=== PATIENT | female | born 1960 | race Asian ===

== ENCOUNTER 2018-09-29 23:12 | Inpatient (IN) | payer OTHER ==
[2018-09-30] MEDS ORDERED: HYDROCODONE/APAP (5/325) TAB PO (00:30)
[2018-09-30 05:49] LABS: ADD MAN DIFF? NO
[2018-09-30 05:56] LABS: WHITE BLOOD COUNT 5.5 10^3/ul (4.8-10.8)
[2018-09-30 05:56] LABS: BASOPHIL # 0.1 10^3/ul (0.0-0.1); BASOPHILS % 1.5 % (0.0-2.0); EOSINOPHILS # 0.2 10^3/ul (0.0-0.5); EOSINOPHILS % 2.9 % (0.0-7.0); HEMATOCRIT 32.6 % (37.0-47.0); HEMOGLOBIN 10.8 g/dl (12.0-16.0); LYMPHOCYTES # 1.6 10^3/ul (0.8-2.9); LYMPHOCYTES % 29.5 % (15.0-51.0); MEAN CORPUSCULAR HEMOGLOBIN 30.6 pg (29.0-33.0); MEAN CORPUSCULAR HGB CONC 33.1 g/dl (32.0-37.0); MEAN CORPUSCULAR VOLUME 92.4 fl (82.0-101.0); MEAN PLATELET VOLUME 10.1 fl (7.4-10.4); MONOCYTE # 0.5 10^3/ul (0.3-0.9); MONOCYTES % 9.8 % (0.0-11.0); NEUTROPHIL # 3.1 10^3/ul (1.6-7.5); NEUTROPHILS % 56.1 % (39.0-77.0); PLATELET COUNT 249 10^3/UL (140-415); RED BLOOD COUNT 3.53 10^6/ul (4.20-5.40); RED CELL DISTRIBUTION WIDTH 12.5 % (11.5-14.5)
[2018-09-30 06:07] LABS: ALANINE AMINOTRANSFERASE 16 IU/L (13-69); ALBUMIN 3.3 g/dl (3.3-4.9); ALBUMIN/GLOBULIN RATIO 1.13; ALKALINE PHOSPHATASE 70 IU/L (42-121); ANION GAP 4 (5-13); ASPARTATE AMINO TRANSFERASE 19 IU/L (15-46); BILIRUBIN,INDIRECT 0.2 mg/dl (0-1.1); BILIRUBIN,TOTAL 0.2 mg/dl (0.2-1.3); BLOOD UREA NITROGEN 24 mg/dl (7-20); CALCIUM 8.9 mg/dl (8.4-10.2); CARBON DIOXIDE 31 mmol/L (21-31); CHLORIDE 111 mmol/L (97-110); CREATININE 0.66 mg/dl (0.44-1.00); Estimated GFR > 60 mL/min (>60); GLUCOSE 115 mg/dl (70-220); MAGNESIUM 2.1 mg/dl (1.7-2.5); PHOSPHORUS 3.6 mg/dl (2.5-4.9); POTASSIUM 3.2 mmol/L (3.5-5.1); SODIUM 146 mmol/L (135-144); TOTAL PROTEIN 6.2 g/dl (6.1-8.1)
[2018-09-30] MEDS: HEPARIN 5,000 UNIT/1 ML VIAL SC ×2 (10:43→20:39)
[2018-09-30] MEDS: HYDROCODONE/APAP (5/325) TAB PO (13:39)
[2018-09-30] MEDS: POTASSIUM CHLORIDE (SR) 20 MEQ TAB PO (14:39)
[2018-10-01] MEDS: HYDROCODONE/APAP (5/325) TAB PO (01:32)
[2018-10-01 05:19] LABS: ADD MAN DIFF? NO
[2018-10-01 05:33] LABS: WHITE BLOOD COUNT 6.5 10^3/ul (4.8-10.8)
[2018-10-01 05:33] LABS: BASOPHIL # 0.1 10^3/ul (0.0-0.1); BASOPHILS % 1.1 % (0.0-2.0); EOSINOPHILS # 0.2 10^3/ul (0.0-0.5); EOSINOPHILS % 3.4 % (0.0-7.0); HEMATOCRIT 32.7 % (37.0-47.0); HEMOGLOBIN 10.6 g/dl (12.0-16.0); LYMPHOCYTES % 30.2 % (15.0-51.0); MEAN CORPUSCULAR HEMOGLOBIN 30.4 pg (29.0-33.0); MEAN CORPUSCULAR HGB CONC 32.4 g/dl (32.0-37.0); MEAN CORPUSCULAR VOLUME 93.7 fl (82.0-101.0); MEAN PLATELET VOLUME 9.9 fl (7.4-10.4); MONOCYTE # 0.4 10^3/ul (0.3-0.9); MONOCYTES % 6.2 % (0.0-11.0); NEUTROPHIL # 3.8 10^3/ul (1.6-7.5); NEUTROPHILS % 58.6 % (39.0-77.0); PLATELET COUNT 233 10^3/UL (140-415); RED BLOOD COUNT 3.49 10^6/ul (4.20-5.40); RED CELL DISTRIBUTION WIDTH 12.6 % (11.5-14.5)
[2018-10-01 05:57] LABS: ANION GAP 4 (5-13); BLOOD UREA NITROGEN 18 mg/dl (7-20); CALCIUM 9.1 mg/dl (8.4-10.2); CARBON DIOXIDE 31 mmol/L (21-31); CHLORIDE 110 mmol/L (97-110); CREATININE 0.53 mg/dl (0.44-1.00); Estimated GFR > 60 mL/min (>60); GLUCOSE 103 mg/dl (70-220); MAGNESIUM 2.2 mg/dl (1.7-2.5); PHOSPHORUS 3.8 mg/dl (2.5-4.9); POTASSIUM 4.3 mmol/L (3.5-5.1); SODIUM 145 mmol/L (135-144)
[2018-10-01] MEDS: NACL 0.9% 3 ML SYG IV (21:27)
[2018-10-02] MEDS: DEXTROSE 5%-0.45% NACL 1,000 ML IV ×3 (07:00→21:58)
[2018-10-02] MEDS ORDERED: FENTAnyl 50 MCG/ML VIAL ×2 (17:01→18:10)
[2018-10-02] MEDS ORDERED: MIDAZOLAM 1 MG/ML 2 ML INJ (17:01)
[2018-10-02] MEDS: POLYMYXIN/BACITRACIN 1L IRRIG (17:53)
[2018-10-02] MEDS ORDERED: VANCOMYCIN 1 GM INJ (18:45)
[2018-10-02] MEDS ORDERED: ONDANSETRON 4 MG INJ (19:19)
[2018-10-02] MEDS ORDERED: ETOMIDATE 20 MG INJ (19:19)
[2018-10-02] MEDS ORDERED: CEFAZOLIN 1 GM INJ (19:19)
[2018-10-02] MEDS ORDERED: LIDOCAINE 2% (SDV) 5 ML INJ (19:19)
[2018-10-02] MEDS ORDERED: morphine SULFATE/PF (10 MG/10 ML) INJ (19:20)
[2018-10-02] MEDS ORDERED: MEPERIDINE 25 MG INJ IV (20:00)
[2018-10-02] MEDS ORDERED: HYDROmorphONE 1 MG/5 ML IV SYRINGE IV ×2 (20:00)
[2018-10-02] MEDS ORDERED: FENTAnyl 50 MCG/ML VIAL IV (20:00)
[2018-10-02] MEDS ORDERED: DIPHENHYDRAMINE 50 MG INJ IV (20:00)
[2018-10-02] MEDS ORDERED: METOCLOPRAMIDE 10 MG INJ IV (20:00)
[2018-10-02] MEDS ORDERED: ONDANSETRON 4 MG INJ IV (20:00)
[2018-10-02] MEDS: ALBUMIN HUMAN 5% 250 ML IV (20:18)
[2018-10-02] MEDS ORDERED: EPHEDrine SULFATE 50 MG/5 ML SYG IV (20:30)
[2018-10-02] MEDS: LACTATED RINGER'S 500 ML IV (20:33)
[2018-10-02 20:44] LABS: ADD MAN DIFF? NO
[2018-10-02 20:45] LABS: BASOPHIL # 0.1 10^3/ul (0.0-0.1); BASOPHILS % 0.3 % (0.0-2.0); EOSINOPHILS # 0.1 10^3/ul (0.0-0.5); EOSINOPHILS % 0.5 % (0.0-7.0); HEMATOCRIT 27.9 % (37.0-47.0); HEMOGLOBIN 8.9 g/dl (12.0-16.0); LYMPHOCYTES # 2.9 10^3/ul (0.8-2.9); LYMPHOCYTES % 14.5 % (15.0-51.0); MEAN CORPUSCULAR HEMOGLOBIN 30.3 pg (29.0-33.0); MEAN CORPUSCULAR HGB CONC 31.9 g/dl (32.0-37.0); MEAN CORPUSCULAR VOLUME 94.9 fl (82.0-101.0); MEAN PLATELET VOLUME 9.7 fl (7.4-10.4); MONOCYTE # 0.8 10^3/ul (0.3-0.9); NEUTROPHILS % 80.1 % (39.0-77.0); PLATELET COUNT 188 10^3/UL (140-415); RED BLOOD COUNT 2.94 10^6/ul (4.20-5.40); RED CELL DISTRIBUTION WIDTH 12.5 % (11.5-14.5)
[2018-10-02 21:02] LABS: ANION GAP 9 (5-13); BLOOD UREA NITROGEN 13 mg/dl (7-20); CALCIUM 8.8 mg/dl (8.4-10.2); CARBON DIOXIDE 24 mmol/L (21-31); CHLORIDE 110 mmol/L (97-110); CREATININE 0.46 mg/dl (0.44-1.00); Estimated GFR > 60 mL/min (>60); GLUCOSE 150 mg/dl (70-220); POTASSIUM 4.1 mmol/L (3.5-5.1); SODIUM 143 mmol/L (135-144)
[2018-10-02] MEDS: CEFAZOLIN 1 GM/50 ML (PMX) 50 ML IVPB (21:55)
[2018-10-03] MEDS: CEFAZOLIN 1 GM/50 ML (PMX) 50 ML IVPB ×2 (01:09→13:04)
[2018-10-03] MEDS: DEXTROSE 5%-0.45% NACL 1,000 ML IV ×2 (08:15→18:37)
[2018-10-03] MEDS: ENOXAPARIN 40 MG/0.4 ML SYG SC (08:17)
[2018-10-03] MEDS: ACETAMINOPHEN 325 MG TAB PO (08:25)
[2018-10-03] MEDS: HYDROCODONE/APAP (5/325) TAB PO ×2 (13:04→18:39)
[2018-10-04] MEDS: DEXTROSE 5%-0.45% NACL 1,000 ML IV ×2 (03:28→19:00)
[2018-10-04 05:08] LABS: ADD MAN DIFF? NO
[2018-10-04 05:27] LABS: WHITE BLOOD COUNT 10.7 10^3/ul (4.8-10.8)
[2018-10-04 05:27] LABS: ABNORMAL IP MESSAGE 1; BASOPHILS % 0.3 % (0.0-2.0); EOSINOPHILS # 0.1 10^3/ul (0.0-0.5); EOSINOPHILS % 0.5 % (0.0-7.0); LYMPHOCYTES % 9.3 % (15.0-51.0); MEAN CORPUSCULAR HEMOGLOBIN 31.1 pg (29.0-33.0); MEAN CORPUSCULAR HGB CONC 32.9 g/dl (32.0-37.0); MEAN CORPUSCULAR VOLUME 94.4 fl (82.0-101.0); MEAN PLATELET VOLUME 10.2 fl (7.4-10.4); MONOCYTE # 0.7 10^3/ul (0.3-0.9); MONOCYTES % 6.6 % (0.0-11.0); NEUTROPHIL # 8.9 10^3/ul (1.6-7.5); NEUTROPHILS % 82.6 % (39.0-77.0); PLATELET COUNT 139 10^3/UL (140-415); RED CELL DISTRIBUTION WIDTH 12.9 % (11.5-14.5)
[2018-10-04 05:43] LABS: ANION GAP 5 (5-13); BLOOD UREA NITROGEN 6 mg/dl (7-20); CALCIUM 8.2 mg/dl (8.4-10.2); CARBON DIOXIDE 27 mmol/L (21-31); CHLORIDE 109 mmol/L (97-110); CREATININE 0.46 mg/dl (0.44-1.00); Estimated GFR > 60 mL/min (>60); GLUCOSE 172 mg/dl (70-220); MAGNESIUM 1.7 mg/dl (1.7-2.5); PHOSPHORUS 2.7 mg/dl (2.5-4.9); POTASSIUM 3.3 mmol/L (3.5-5.1); SODIUM 141 mmol/L (135-144)
[2018-10-04 05:55] LABS: POSITIVE DIFF @See below
[2018-10-04 05:57] LABS: HEMOGLOBIN 5.6 g/dl (12.0-16.0)
[2018-10-04 06:57] LABS: HEMATOCRIT 16.6 % (37.0-47.0)
[2018-10-04 07:00] LABS: HEMOGLOBIN 5.4 g/dl (12.0-16.0)
[2018-10-04 07:49] LABS: ANISOCYTOSIS 1+ (0-0); BAND NEUTROPHILS #M 0.3 10^3/ul (0.0-0.6); BAND NEUTROPHILS % (M) 3 % (0-4); BASOPHIL #M 0.1 10^3/ul (0.0-0.0); BASOPHILS % (M) 1 % (0-2); HYPOCHROMASIA 2+ (0-0); LYMPHOCYTES % (M) 10 % (15-51); MICROCYTOSIS 1+ (0-0); MONOCYTE #M 0.1 10^3/ul (0.3-0.9); MONOCYTES % (M) 1 % (0-11); PLATELET ESTIMATE DECREASED; POLYCHROMASIA 2+ (0-0); SEG NEUT #M 9.1 10^3/ul (1.6-7.5); SEGMENTED NEUTROPHILS (M) % 85 % (39-77); SMUDGE%M 2 % (0-0)
[2018-10-04] MEDS: morphine 4 MG/ML VIAL IV (10:36)
[2018-10-04 14:42] LABS: IMMEDIATE SPIN CROSSMATCH 1 2
[2018-10-04] MEDS: SOD CHLORIDE 0.9% 250 ML IV* (17:44)
[2018-10-04 19:17] LABS: HEMATOCRIT 28.5 % (37.0-47.0); HEMOGLOBIN 9.7 g/dl (12.0-16.0)
[2018-10-04] MEDS: POTASSIUM CHLORIDE (SR) 20 MEQ TAB PO (22:20)
[2018-10-04] MEDS: POLYETHYLENE GLYCOL 17 GM PACKET PO (23:06)
[2018-10-04] MEDS: DOCUSATE SODIUM 100 MG CAP PO (23:06)
[2018-10-05] MEDS: DEXTROSE 5%-0.45% NACL 1,000 ML IV (00:30)
[2018-10-05 05:01] LABS: ADD MAN DIFF? NO
[2018-10-05 05:09] LABS: WHITE BLOOD COUNT 10.5 10^3/ul (4.8-10.8)
[2018-10-05 05:09] LABS: BASOPHILS % 0.4 % (0.0-2.0); EOSINOPHILS # 0.1 10^3/ul (0.0-0.5); EOSINOPHILS % 0.8 % (0.0-7.0); HEMATOCRIT 29.5 % (37.0-47.0); LYMPHOCYTES # 1.3 10^3/ul (0.8-2.9); LYMPHOCYTES % 12.3 % (15.0-51.0); MEAN CORPUSCULAR HEMOGLOBIN 30.7 pg (29.0-33.0); MEAN CORPUSCULAR HGB CONC 33.9 g/dl (32.0-37.0); MEAN CORPUSCULAR VOLUME 90.5 fl (82.0-101.0); MEAN PLATELET VOLUME 9.9 fl (7.4-10.4); MONOCYTE # 0.7 10^3/ul (0.3-0.9); NEUTROPHIL # 8.3 10^3/ul (1.6-7.5); NEUTROPHILS % 78.8 % (39.0-77.0); PLATELET COUNT 149 10^3/UL (140-415); RED BLOOD COUNT 3.26 10^6/ul (4.20-5.40)
[2018-10-05 05:32] LABS: ANION GAP 6 (5-13); BLOOD UREA NITROGEN 6 mg/dl (7-20); CALCIUM 8.5 mg/dl (8.4-10.2); CARBON DIOXIDE 24 mmol/L (21-31); CHLORIDE 112 mmol/L (97-110); CREATININE 0.39 mg/dl (0.44-1.00); Estimated GFR > 60 mL/min (>60); GLUCOSE 164 mg/dl (70-220); MAGNESIUM 1.9 mg/dl (1.7-2.5); PHOSPHORUS 2.4 mg/dl (2.5-4.9); POTASSIUM 4.2 mmol/L (3.5-5.1); SODIUM 142 mmol/L (135-144)
[2018-10-05] MEDS: POLYETHYLENE GLYCOL 17 GM PACKET PO (08:47)
[2018-10-05] MEDS: DOCUSATE SODIUM 100 MG CAP PO ×3 (08:47→21:30)
[2018-10-05] MEDS: HYDROCODONE/APAP (5/325) TAB PO ×2 (11:02→21:36)
[2018-10-05] MEDS: ONDANSETRON 4 MG INJ IV (11:02)
[2018-10-05] MEDS: RIVAROXABAN 10 MG TABLET PO (12:03)
[2018-10-06] MEDS: RIVAROXABAN 10 MG TABLET PO (08:36)
[2018-10-06] MEDS: DOCUSATE SODIUM 100 MG CAP PO (08:36)
[2018-10-06] MEDS: POLYETHYLENE GLYCOL 17 GM PACKET PO (08:37)
[2018-10-06 09:17] LABS: ADD MAN DIFF? NO
[2018-10-06 09:23] LABS: BASOPHILS % 0.3 % (0.0-2.0); EOSINOPHILS # 0.2 10^3/ul (0.0-0.5); HEMATOCRIT 29.4 % (37.0-47.0); HEMOGLOBIN 9.8 g/dl (12.0-16.0); LYMPHOCYTES # 1.2 10^3/ul (0.8-2.9); LYMPHOCYTES % 12.9 % (15.0-51.0); MEAN CORPUSCULAR HEMOGLOBIN 30.4 pg (29.0-33.0); MEAN CORPUSCULAR HGB CONC 33.3 g/dl (32.0-37.0); MEAN CORPUSCULAR VOLUME 91.3 fl (82.0-101.0); MONOCYTE # 0.5 10^3/ul (0.3-0.9); MONOCYTES % 5.3 % (0.0-11.0); NEUTROPHIL # 7.5 10^3/ul (1.6-7.5); NEUTROPHILS % 79.1 % (39.0-77.0); PLATELET COUNT 220 10^3/UL (140-415); RED BLOOD COUNT 3.22 10^6/ul (4.20-5.40); RED CELL DISTRIBUTION WIDTH 14.4 % (11.5-14.5)
[2018-10-06 09:23] LABS: WHITE BLOOD COUNT 9.5 10^3/ul (4.8-10.8)
[2018-10-06] MEDS: HYDROCODONE/APAP (5/325) TAB PO (10:01)
== END 2018-10-06 15:55 | disposition home or self-care (01) | DRG 470 ==
LOC: MS1 23:12
PROC: 0SRS0JZ Replacement of Left Hip Joint, Femoral Surface with Synthetic Substitute, Open Approach (ICD-10-PCS; principal; 2018-10-02 15:30)
DX: S72.002A Fracture of unspecified part of neck of left femur, initial encounter for closed fracture (principal); Z68.1 Body mass index [BMI] 19.9 or less, adult; D62 Acute posthemorrhagic anemia; Q78.2 Osteopetrosis; R63.6 Underweight; I10 Essential (primary) hypertension; W19.XXXA Unspecified fall, initial encounter
CPT/HCPCS: 36430; 73500; 73510; 74176; 80048; 80053; 83735; 84100; 85014; 85018; 85025; 86850; 86900; 86901; 86920; 88304; 88311; 97110; 97116; 97161; 97167; 97530